=== PATIENT | male | born 1995 | race Two or more races ===

== ENCOUNTER 2019-02-22 13:52 | Emergency (ER) | payer BC, OTHER ==
[~2019-02-22] VITALS: Ht 172.7 cm; Wt 74.8 kg
--- NOTE | 2019-02-22 13:59 | NUR ---
PATIENT CAME IN TO THE ER C/O R HAND PAIN AND SWELLING x 3 DAYS, DENIES INJURY/TRAUMA, 08/07 PS. ON ROOM AIR, BREATHING EVENLY AND UNLABORED. KEPT COMFORTABLE, WILL CONTINUE TO MONITOR ACCORDINGLY.
[2019-02-22] MEDS ORDERED: TDAP [DIPH/PERTUSSIS/TET] 0.5 ML VIAL IM ONE (14:18)
[2019-02-22 14:20] VITALS: BP 129/67
--- NOTE | 2019-02-22 14:20 | NUR ---
Patient discharged to home in stable condition. Written and verbal after care instructions given. Patient verbalizes understanding of instruction.
[2019-02-22] MEDS: TDAP [DIPH/PERTUSSIS/TET] 0.5 ML VIAL IM ONE (14:23)
== END 2019-02-22 14:27 | disposition home or self-care (01) ==
LOC: ER 13:53
DX: L03.113 Cellulitis of right upper limb (principal)
CPT/HCPCS: 90715